=== PATIENT | male | born 1990 | race Caucasian/White ===

== ENCOUNTER → 2023-09-15 07:48 | Outpatient (CLI) | payer OTHER, SELFPAY ==
[2023-09-15 08:43] LABS: Add Manual Diff / Slide Review NO; Basophils Absolute Auto 0 /uL (0-100); Basophils Percent Auto 0.4 % (0-2); Eosinophils Absolute Auto 100 /uL (0-450); Eosinophils Percent Auto 1.7 % (2-4); Hematocrit 44.4 % (41-53); Hemoglobin 15.7 g/dL (13.5-17.5); Lymphocytes Absolute Auto 2300 /uL (1100-4500); Lymphocytes Percent Auto 34.7 % (25-40); Mean Corpuscular HGB Conc 35.4 % (30-36); Mean Corpuscular Hemoglobin 30.3 PG (26-34); Mean Corpuscular Volume 85.5 fL (80-100); Monocytes Absolute Auto 400 /uL (0-900); Monocytes Percent Auto 6.3 % (3-14); Neutrophils Absolute Auto 3800 /uL (1500-7000); Neutrophils Percent Auto 56.9 % (50-75); Platelet Count 242 X10^3/uL (150-400); Red Cell Distribution Width 12.2 % (11.6-14.8); White Blood Cell Count 6.6 X10^3/uL (4.5-11.0)
[2023-09-15 08:53] LABS: Hemoglobin A1C% w Est Avg Glu 5.1 % (4.0-6.0)
[2023-09-15 09:25] LABS: Alanine Aminotransferase 104 IU/L (<50); Albumin 4.8 g/dL (3.5-5.0); Albumin Globulin Ratio 1.5 (1.0-2.8); Alkaline Phosphatase 123 U/L (38-126); Aspartate Aminotransferase 51 IU/L (17-59); BUN Creatinine Ratio 9.1 (6-22); Bilirubin Total 0.9 mg/dL (0.2-1.3); Blood Urea Nitrogen 11 mg/dL (9-20); Calcium 9.1 mg/dL (8.4-10.2); Carbon Dioxide 25 mmol/L (22-32); Chloride 107 mmol/L (98-107); Cholesterol 212 mg/dL (140-199); Estimated Glomerular Filt Rate > 60 mL/min (>60); Globulin 3.1 g/dL (1.7-4.1); Glucose 107 mg/dL (70-100); HDL Cholesterol 47 mg/dL (40-60); HEMOLYSIS < 15 (0-50); LDL Cholesterol Calculated 132 mg/dL (<100); Potassium 3.9 mmol/L (3.4-5.1); Sodium 141 mmol/L (137-145); Total Protein 7.9 g/dL (6.3-8.2); Triglycerides 164 mg/dL (35-150)
[2023-09-15 09:42] LABS: Vitamin D 25 Hydroxy (D3) 37.9 ng/mL (30.0-100.0)
[2023-09-15 09:56] LABS: TSH w/ Reflex to FT4 2.79 uIU/mL (0.47-4.68)
[2023-09-15 16:33] LABS: Urine N gonorrhoeae NOT DETECTED
[2023-09-15 16:34] LABS: Urine Chlamydia NOT DETECTED
[2023-09-16 15:12] LABS: Treponema pallidum Antibodies Non Reactive (Non Reactive)
[2023-09-16 16:24] LABS: HIV 1 & 2 Ab/Ag 4th Gen Combo NEGATIVE (NEGATIVE); Hep C Virus Ab w/Reflex Quant NEGATIVE s/c (NEGATIVE)
== END ==
PROVIDERS: PCP Family Medicine; Referring Provider Family Medicine; Visit Provider Family Medicine
DX: Z11.3 Encounter for screening for infections with a predominantly sexual mode of transmission (principal); F31.81 Bipolar II disorder; G43.909 Migraine, unspecified, not intractable, without status migrainosus; F41.1 Generalized anxiety disorder; Z79.899 Other long term (current) drug therapy; Z68.34 Body mass index [BMI] 34.0-34.9, adult; Z83.3 Family history of diabetes mellitus
CPT/HCPCS: 80053; 80061; 82306; 83036; 84443; 85025; 86780; 86803; 87389; 87491; 87591

== ENCOUNTER 2024-05-04 08:26 | Day surgery (SDC) | payer OTHER, SELFPAY ==
[2024-04-28 11:00] VITALS: BMI 35.2
[2024-05-04] VITALS (10 sets, daily range): BP systolic 138–165; BP diastolic 74–104; PULSE 80–101; RESP 10–19; TEMP 36.3–36.8; O2SAT 92–99; BMI 35.2
[2024-05-04] MEDS: FAMOTIDINE 20 MG/2 ML VIAL IV (09:06)
[2024-05-04] MEDS: ACETAMINOPHEN 325 MG TABLET 975 MG PO (09:07)
--- NOTE | 2024-05-04 09:28 | PM.PREOP ---
Pre-operative Note Interval Note History & Physical reviewed/Exam performed by Physician: Yes Changes to H&P: No
--- NOTE | 2024-05-04 09:28 | PM.HP.1 ---
History of Present Illness History of Present Illness Date Patient Seen: 05/04/24 Time Patient Seen: 09:28 Chief complaint: Septoplasty Narrative: 33-year-old male last seen in clinic 02/21/2024 presents for septoplasty and turbinate reduction, possible left intranasal cautery under general anesthesia. No interval health changes, wishes to proceed. [facility] Medical History Asthma Bipolar II disorder (03/22/04) Migraine (03/22/04) Generalized anxiety disorder (03/22/98) Depression (88) Social History household members: spouse Smoking Status: Never smoker alcohol intake: former Meds Home Medications and Allergies Home Medications Medication Instructions Recorded Confirmed Type buspirone 15 mg tablet 15 mg PO BID 09/10/23 05/04/24 History galcanezumab-gnlm 120 mg/mL 120 mg SUBCUT PRETR 09/10/23 05/04/24 History subcutaneous pen injector (Emgality Pen) lamotrigine 100 mg tablet 100 mg PO DAILY 09/10/23 05/04/24 History lamotrigine 200 mg tablet 200 mg PO DAILY 09/10/23 05/04/24 History venlafaxine 150 mg 150 mg PO DAILY 09/10/23 05/04/24 History capsule,extended release 24 hr loratadine 10 mg tablet (Claritin) 10 mg PO DAILY 04/28/24 05/04/24 History Allergies Allergy/AdvReac Type Severity Reaction Status Date / Time No Known Drug Allergies Allergy Verified 05/04/24 08:55 Review of Systems Review of Systems Narrative: Negative except as listed in the HPI Exam Vital Signs (past 8 hours): - 05/04/24 09:18 Temperature 98.2 F Pulse Rate 93 H Respiratory Rate 16 Blood Pressure 143/97 H Pulse Oximetry 98 Oxygen Delivery Method Room Air Oxygen Delivery Method Room Air Narrative Exam Narrative: Well-developed well-nourished, heart regular rate and rhythm without murmur, lungs clear to auscultation bilaterally Assessment & Plan Assessment & Plan narrative: Assessment: Nasal airway obstruction, septal deviation, inferior turbinate hypertrophy, left chronic recurrent epistaxis Plan: Following discussion of the material risks benefits complications and alternatives, the patient elected to proceed. Time-Based Coding :: [TOTAL MINUTES] spent with patient and on the chart (including review of chart, obtaining history, exam, reviewing outside data, placing orders, documenting exam and treatment plan, and counseling patient) on [DATE].
--- NOTE | 2024-05-04 09:29 | P.OP_ITS ---
Operative Date/Time/Diagnoses Date of procedure: 05/04/24 Time of procedure: 10:58 Pre-op diagnosis: Nasal airway obstruction, septal deviation, inferior turbinate hypertrophy, left chronic recurrent epistaxis Post-op diagnosis: same Procedure & Clinicians Procedure: 1. Septoplasty 2. Bilateral inferior turbinate reduction via intramural cautery 3. Left anterior simple control of epistaxis Same procedure as scheduled: Yes Indications: 33 Year old with the above diagnoses incompletely managed with medical therapy presents for the above procedure. Following discussion of the material risks benefits complications and alternatives, the patient elected to proceed. Surgeon: Broderick Whitlock Click Yes if Unassisted: Yes Anesthesia Type: General and Local Operative Notes Findings: Convoluted septum primarily to the RIGHT anteriorly, LEFT low bony spur low and high, LEFT flap tear with elevation, RIGHT flap intact. moderate bilateral inferior turbinate hypertrophy. Large anterior low septal vessel ablated with suction electrocautery Estimated Blood Loss (mL): 75 Procedure in detail: Following identification and confirmation of consent as well as preoperative Afrin nasal spray, the patient was brought to the operating room suite and placed in the supine position. General endotracheal anesthesia was administere d. I infiltrated the septum widely bilaterally with 1% lidocaine 1 100,000 epinephrine followed by temporary packing with cotton with Afrin and 4% lidocaine. Following sterile prep and drape, the packing was removed and I performed a right mich-transfixion incision, elevated the right mucoperichondrial and mucoperiosteal flap. I disarticulated near the bony/cartilaginous junction and elevated the left mucoperiosteal flap. Deviated portions of the perpendicular plate of the ethmoid and vomer were resected. The residual quadrilateral cartilage was further straightened by trimming it inferio rly as well as reducing the maxillary crest. A 2 mm strip of cartilage paralleling the residual 1 cm dorsal and caudal strut was resected to further straighten the quadrilateral cartilage. The hemitransfixion incision was closed with interrupted 5 0 chromic followed by a running 4 0 plain gut mattress suture to reapproximate the septal flaps. At case completion, Jennings air channel silastic splints were placed bilaterally, sutured anteriorly with a single 4 0 nylon. The head of each inferior turbinate had been previously infiltrated with additional local anesthetic and a 25 gauge spinal needle was used to impale the length of the turbinate, with cautery on a setting of 15 activated on slow withdrawal over 2 passes. The turbinates were then outfractured. The visible left anterior low septal vessel was ablated with suction electrocautery on a setting of 10. The procedure completed, sponge and needle counts were correct and the patient was extubated in the operating room and taken to recovery room in stable condition without known complication. Postoperative care: Nasal saline every hour while awake, Polysporin to the nostrils at all times, begin irrigations t.i.d. beginning pod 1. Humidifier at the bedside blowing on the face. Tylenol alternating with Advil for pain control, oxycodone if necessary for breakthrough pain. Complications: none Post-operative Condition: stable Disposition: same day surgery Plan for aftercare: Nasal saline every hour while awake, begin irrigations t.i.d. tomorrow if desired. Polysporin to the nostrils at all times, Tylenol alternating with Advil for pain control, oxycodone for breakthrough pain. Elevate head of bed, no nose blowing, no straining for 2 weeks. Ice directly under the nose on the upper lip has tolerated 24-48 hours at a minimum. Follow-up in 1 week for nasal splint removal.
--- NOTE | 2024-05-04 10:06 | SUR.OPER ---
Supine on padded OR bed, head on pillow, arms padded and tucked at sides, legs uncrossed, safety belt at thigh, tape over blanket over lower legs .
[2024-05-04] MEDS: LIDOCAINE 4% SOLN 50 ML 20 ML TOP (10:13)
[2024-05-04] MEDS: LIDOCAINE 1% W/EPI 20ML 20 ML INJ (10:19)
[2024-05-04] MEDS: OXYMETAZOLINE NASAL SPRAY 30 ML 2 SPRAYS NASAL (10:20)
[2024-05-04] MEDS: BACITRACIN OINT 0.9 GM PCKT 1 APPLIC TOP (10:22)
[2024-05-04] MEDS: OXYCODONE IR 5 MG TABLET PO ×2 (11:21→12:20)
== END 2024-05-04 12:55 | disposition home or self-care (01) ==
PROVIDERS: PCP Family Medicine; Referring Provider Otolaryngology; Visit Provider Otolaryngology
PROC: (CPT 30520; principal; 2024-05-04 09:30)
DX: J34.2 Deviated nasal septum (principal); J34.3 Hypertrophy of nasal turbinates; J34.89 Other specified disorders of nose and nasal sinuses; R04.0 Epistaxis
CPT/HCPCS: 30520; 30802; 30901; J0330; J1100; J2405; J2704; J3010